=== PATIENT | female | born 1940 | race Two or more races ===

== ENCOUNTER 2017-11-10 06:52 | Day surgery (SDC) | payer OTHER, MEDICAID ==
[~2017-11-10] VITALS: Ht 157.5 cm; Wt 100.0 kg
[~2017-11-10 06:52] MED LIST: AMLO10TA2 PO; ASPI81TA27 PO; HYDR10TA26 PO; METO1TAB9 PO
[2017-11-10] MEDS ORDERED: LIDOCAINE HCL 2 %PF INJ 10ML AMP IJ ONE (07:22)
[2017-11-10] MEDS ORDERED: IODIXANOL 320MG/ML 100ML BTL IV ONE (07:22)
[2017-11-10] MEDS ORDERED: fentaNYL CITRATE 100 MCG/2 ML VL ONE (07:54)
[2017-11-10] MEDS ORDERED: MIDAZOLAM HCL 1MG/1ML-2 ML VIAL ONE (07:54)
[2017-11-10] MEDS ORDERED: VERAPAMIL 2.5MG/ML INJ 2ML VIAL IV ONE (07:54)
[2017-11-10] MEDS ORDERED: ANGIOMAX 250 MG VIAL IV ONE (07:54)
[2017-11-10] MEDS ORDERED: SODIUM CHL 0.9% 0 ML ONE (07:55)
[2017-11-10] MEDS ORDERED: HEPARIN SODIUM (PORCINE) 5000 UNITS/ML 1ML VIAL ONE (08:33)
== END 2017-11-10 10:35 | disposition home or self-care (01) ==
LOC: CATH 06:52
PROVIDERS: ATTEND Internal Medicine
DX: R94.39 Abnormal result of other cardiovascular function study (principal); I10 Essential (primary) hypertension; E78.5 Hyperlipidemia, unspecified; J44.9 Chronic obstructive pulmonary disease, unspecified; Z88.6 Allergy status to analgesic agent
CPT/HCPCS: C1769; C1894; J1644; J2250; J3010; J7030; Q9967; 93458; 99152

== ENCOUNTER 2017-12-25 10:15 | Emergency (ER) | payer OTHER, MEDICAID ==
[~2017-12-25] VITALS: Ht 157.5 cm; Wt 108.9 kg
[2017-12-25 10:34] VITALS: BP 116/71
[2017-12-25] MEDS ORDERED: MEPERIDINE HCL (50 MG/ML) 1 ML VIAL IM ONE (11:00)
[2017-12-25] MEDS ORDERED: PROMETHAZINE HCL 25 MG/ML 1ML IM ONE (11:00)
[2017-12-31] MEDS ORDERED: AMLO5TAB2 PO (22:41)
[2017-12-31] MEDS ORDERED: TRAM50TA2 PO (22:41)
== END 2017-12-25 12:03 | disposition home or self-care (01) ==
LOC: ER 10:15
DX: M48.061 Spinal stenosis, lumbar region without neurogenic claudication (principal); M54.16 Radiculopathy, lumbar region; I10 Essential (primary) hypertension; Z88.5 Allergy status to narcotic agent
CPT/HCPCS: 72131; 96372; 99284; J2175; J2550

== ENCOUNTER 2019-04-15 11:31 | Inpatient (IN) | payer OTHER, MEDICAID ==
[~2019-04-15] VITALS: Ht 157.5 cm; Wt 110.7 kg
[~2019-04-15 11:31] MED LIST changes: -AMLO10TA2 PO; +AMLO5TAB15 PO; +ASPI-404 PO; -ASPI81TA27 PO; +TRAM50TA2 PO
[2019-04-15] MEDS ORDERED: SODIUM CHLORIDE 0.9% 1,000 ML IV ONE (12:51)
[2019-04-15] MEDS ORDERED: ONDANSETRON HCL 4 MG/2 ML VIAL IV ONE (13:00)
[2019-04-15] MEDS ORDERED: KETOROLAC TROMETH 30 MG/ML 1ML VIAL IV ONE (13:00)
[2019-04-15 13:50] LABS: Basophils # (auto) 0.1 uL; Basophils % (auto) 1.5 % (0.0-2.0); Eosinophils # (auto) 0.9 uL; Eosinophils % (auto) 9.4 % (0.0-7.0); Hemoglobin 14.4 g/dL (12.2-16.2); Lymphocytes # (auto) 2.1 uL; Lymphocytes % (auto) 22.4 % (10.0-50.0); Mean Corpuscular Hemoglobin 27.7 pg (28.0-32.0); Mean Corpuscular Hgb Conc. 33.5 g/dL (32.0-36.0); Mean Corpuscular Volume 82.6 fL (80.0-100.0); Monocytes # (auto) 0.9 uL; Monocytes % (auto) 9.7 % (0.0-12.0); Neutrophils # (auto) 5.3 uL; Nucleated Red Blood Cells % 0.1 %; Platelet Count (auto) 194 10^3/uL (140-450); Red Cell Distribution Width 14.3 % (11.8-14.3); White Blood Cell 9.3 10^3/uL (4.4-10.8)
[2019-04-15 14:04] LABS: INR 0.96 (0.9-1.15); Partial Thromboplastin Time 25.9 sec (23.64-32.05)
[2019-04-15 14:11] LABS: Albumin 3.8 g/dL (3.4-5.0); Calcium 8.8 mg/dL (8.5-10.1); Potassium 4.2 mmol/L (3.5-5.1)
[2019-04-15 14:18] LABS: BUN/Creatinine Ratio 21.3; Bilirubin, Total 0.3 mg/dL (0.2-1.0); Total Protein 7.4 g/dL (6.4-8.2)
[2019-04-15 15:19] LABS: Urine Bacteria NONE SEEN /hpf (None Seen); Urine Blood Negative /uL (Negative); Urine Hyaline Cast FEW /lpf (0 - 2); Urine Mucus FEW (None Seen); Urine Specific Gravity 1.017 (1.001-1.035); Urine WBC 8 /hpf (0 - 5)
[2019-04-15] MEDS ORDERED: metroNIDAZOLE 500MG/100ML 100 ML IV ONE (16:00)
[2019-04-15] MEDS ORDERED: cefTRIAXone 1GM/50ML D5W 50 ML IV ONE (16:00)
[2019-04-15] MEDS ORDERED: NITROGLYCERIN 0.4 MG SL TAB SL PRN (19:30)
[2019-04-15] MEDS ORDERED: ACETAMINOPHEN 500 MG TAB PO PRN (19:30)
[2019-04-15] MEDS ORDERED: ONDANSETRON HCL 4 MG/2 ML VIAL IV PRN (19:30)
[2019-04-15] MEDS ORDERED: MORPHINE SULF INJ 2 MG/ML SYRINGE 1ML IV PRN (19:30)
[2019-04-15] MEDS ORDERED: HYDROcodone-ACET 5/325MG TAB PO PRN (19:30)
[2019-04-15] MEDS ORDERED: LABETALOL HCL 5 MG/ML ML 20ML VIAL IV PRN (19:30)
[2019-04-15] MEDS: SODIUM CHLORIDE 0.9% 1,000 ML IV SCH ×2 (19:36→21:46)
[2019-04-15 20:15] VITALS: BP 149/72
--- NOTE | 2019-04-15 20:15 | NUR ---
MS admit from [facility] admitted to tele/MS after SBAR received. Patient oriented to Rachel Martini, RN primary RN, unit, room, bed, and unit policies regarding patient care and visiting hours. Patient weighed by bedscale and encouraged to call if they need something. All questions and concerns addressed, patient verbalized understanding. Note: Patient AxO x 4. [place] speaking, [place] at bedside. On RA with unlabored and even respirations. No signs and symptoms of distress and SOB. Patient turns in bed independently, ambulates with steady gait. IV to right hand 20 gauge intact and patent. Bed in low locked position, side rails up x 2, call light within reach. Instructed on POC and to call for assistance PRN. Will continue care.
[2019-04-15] MEDS: metroNIDAZOLE 500MG/100ML 100 ML IV SCH (21:47)
[2019-04-15] MEDS: DOCUSATE SOD 100 MG CAP PO SCH (21:48)
[2019-04-15 22:00] VITALS: BP 153/84
[2019-04-15] MEDS ORDERED: DOCUSATE SOD 100 MG CAP PO SCH (22:00)
[2019-04-16] MEDS ORDERED: ACET-1156 PO (04:52)
[2019-04-16] MEDS ORDERED: LOSA-39 PO (04:52)
[2019-04-16] MEDS ORDERED: METO25TA62 PO (04:52)
[2019-04-16] MEDS ORDERED: CHOL20007 PO (04:52)
[2019-04-16] MEDS ORDERED: HYDR-4296 PO (04:52)
[2019-04-16 05:00] VITALS: BP 161/75
[2019-04-16] MEDS: metroNIDAZOLE 500MG/100ML 100 ML IV SCH ×3 (05:36→21:59)
--- NOTE | 2019-04-16 06:00 | NUR ---
RIGO Britt paged RE: High BP and BP Home Meds BP 172/74 HR 62 Recheck BP 161/90 HR 59. Reconcile meds have been completed. Awaiting call back, will continue care
[2019-04-16 06:08] VITALS: BP 158/68
--- NOTE | 2019-04-16 06:10 | NUR ---
Received call back from Balwinder TAPE DUPLICATOR updated RIGO Britt on patient status and BP home meds, received new orders, will carry out and continue care.
[2019-04-16 06:20] LABS: Basophils # (auto) 0.1 uL; Basophils % (auto) 0.8 % (0.0-2.0); Eosinophils # (auto) 0.8 uL; Eosinophils % (auto) 10.7 % (0.0-7.0); Hematocrit 42.4 % (36.0-46.0); Hemoglobin 14.7 g/dL (12.2-16.2); Lymphocytes # (auto) 1.8 uL; Lymphocytes % (auto) 25.3 % (10.0-50.0); Mean Corpuscular Hemoglobin 28.5 pg (28.0-32.0); Mean Corpuscular Hgb Conc. 34.6 g/dL (32.0-36.0); Mean Corpuscular Volume 82.3 fL (80.0-100.0); Monocytes # (auto) 0.7 uL; Monocytes % (auto) 9.6 % (0.0-12.0); Neutrophils # (auto) 3.9 uL; Neutrophils % (auto) 53.6 % (37.0-80.0); Nucleated Red Blood Cells % 0.1 %; Platelet Count (auto) 179 10^3/uL (140-450); Red Blood Cells 5.16 10^6/uL (4.0-5.20); Red Cell Distribution Width 14.5 % (11.8-14.3); White Blood Cell 7.3 10^3/uL (4.4-10.8)
[2019-04-16 06:47] LABS: Potassium 3.8 mmol/L (3.5-5.1)
[2019-04-16 06:57] LABS: BUN/Creatinine Ratio 14.8; Calcium 8.6 mg/dL (8.5-10.1)
--- NOTE | 2019-04-16 07:02 | NUR ---
Closing Note patient resting in bed with even and unlabored respirations, no s/s of distress. Bed low locked position with side rails up x 2 and call light within reach. Endorsed care to day shift RN.
--- NOTE | 2019-04-16 07:30 | NUR ---
Opening Shift Note Assumed care of patient, awake and alert. No S/S of distress/SOB or pain on room air. Instructed on POC and to call for assist PRN, will continue to monitor for changes Q1hr and PRN. Bed in low and locked position, rails up x2, no-slip socks on.
--- NOTE | 2019-04-16 08:00 | NUR ---
FAMILY CALL PASSWORD VERIFIED, UPDATED ON PLAN OF CARE, SPOKE TO SAGAR-PATIENTS DAUGHTER, ALL QUESTIONS ANSWERED.
[2019-04-16 08:03] VITALS: BP 142/62
[2019-04-16] MEDS: cefTRIAXone 1GM/50ML D5W 50 ML IV SCH (09:38)
[2019-04-16] MEDS: amLODIPine BESYLATE 5 MG TAB PO SCH (09:43)
[2019-04-16] MEDS: DOCUSATE SOD 100 MG CAP PO SCH ×2 (09:43→21:58)
[2019-04-16] MEDS: LOSARTAN POTASSIUM 50 MG TAB PO SCH (09:45)
[2019-04-16] MEDS: METOPROLOL SUCCINATE XL 50 MG TAB PO SCH (09:46)
[2019-04-16] MEDS: PANTOPRAZOLE 40 MG TAB PO SCH (09:47)
[2019-04-16] MEDS: hydrALAZINE HCL 25 MG TAB PO SCH ×2 (09:47→21:59)
[2019-04-16 12:18] VITALS: BP 139/73
[2019-04-16] MEDS: SODIUM CHLORIDE 0.9% 1,000 ML IV SCH (12:23)
--- NOTE | 2019-04-16 15:30 | NUR ---
DR OLIVEIRA AT BEDSIDE ADVANCE DIET TO PUREE, PRN LACTULOSE, D/C IV FLUIDS.
[2019-04-16] MEDS ORDERED: LACTULOSE 20Gm/30ML SOLN PO PRN (15:45)
[2019-04-16 16:13] VITALS: BP 146/80
--- NOTE | 2019-04-16 20:05 | NUR ---
Opening Shift Note Assumed care of patient, awake and alert. No S/S of distress/SOB or pain. Instructed on POC and to call for assistance PRN, will continue to monitor for changes Q1hr and PRN.
--- NOTE | 2019-04-16 21:45 | NUR ---
IV removal non patent IV to right hand DC'd with clean sterile technique due, catheter fully intact. Pressure dressing applied to site. Patient tolerated well. NOTE:
--- NOTE | 2019-04-16 21:55 | NUR ---
IV insertion IV access obtained, via clean sterile technique by inserting 22 gauge catheter at left hand after 1 attempt(s). IV secured properly. No trauma to site. Patient tolerated well. NOTE:
[2019-04-16] MEDS: SODIUM CHLOR 0.9% PF (SALINE LOCK) 10ML VIAL/SYR IV SCH (21:59)
[2019-04-16 22:00] VITALS: BP 151/65
[2019-04-17 05:00] VITALS: BP 146/64
[2019-04-17] MEDS: metroNIDAZOLE 500MG/100ML 100 ML IV SCH ×3 (05:18→22:31)
[2019-04-17] MEDS: SODIUM CHLOR 0.9% PF (SALINE LOCK) 10ML VIAL/SYR IV SCH ×3 (05:18→22:30)
[2019-04-17 07:38] LABS: Potassium 4.1 mmol/L (3.5-5.1)
[2019-04-17 07:50] LABS: Basophils # (auto) 0.1 uL; Eosinophils # (auto) 0.8 uL; Eosinophils % (auto) 11.4 % (0.0-7.0); Hematocrit 42.4 % (36.0-46.0); Hemoglobin 14.7 g/dL (12.2-16.2); Lymphocytes # (auto) 1.9 uL; Lymphocytes % (auto) 25.8 % (10.0-50.0); Mean Corpuscular Hemoglobin 28.7 pg (28.0-32.0); Mean Corpuscular Hgb Conc. 34.7 g/dL (32.0-36.0); Mean Corpuscular Volume 82.7 fL (80.0-100.0); Monocytes # (auto) 0.7 uL; Monocytes % (auto) 9.9 % (0.0-12.0); Neutrophils # (auto) 3.9 uL; Neutrophils % (auto) 51.9 % (37.0-80.0); Nucleated Red Blood Cells % 0.1 %; Platelet Count (auto) 178 10^3/uL (140-450); Red Blood Cells 5.12 10^6/uL (4.0-5.20); Red Cell Distribution Width 14.3 % (11.8-14.3); White Blood Cell 7.5 10^3/uL (4.4-10.8)
[2019-04-17 09:00] VITALS: BP 133/65
[2019-04-17] MEDS: PANTOPRAZOLE 40 MG TAB PO SCH (09:37)
[2019-04-17] MEDS: cefTRIAXone 1GM/50ML D5W 50 ML IV SCH (09:37)
[2019-04-17] MEDS: amLODIPine BESYLATE 5 MG TAB PO SCH (09:38)
[2019-04-17] MEDS: METOPROLOL SUCCINATE XL 50 MG TAB PO SCH (09:39)
[2019-04-17] MEDS: LOSARTAN POTASSIUM 50 MG TAB PO SCH (09:39)
[2019-04-17] MEDS: hydrALAZINE HCL 25 MG TAB PO SCH ×2 (09:40→22:31)
[2019-04-17] MEDS: DOCUSATE SOD 100 MG CAP PO SCH ×2 (09:40→22:31)
[2019-04-17 13:00] VITALS: BP 146/73
--- NOTE | 2019-04-17 13:24 | NUR ---
pt seen by Dr. Green per Dr. Green he will keep the pt one more day for her iv antibiotic and will be discharge tomorrow.
[2019-04-17 17:00] VITALS: BP 140/68
--- NOTE | 2019-04-17 19:15 | NUR ---
Opening Shift Note Assumed care of patient, awake and alert. No S/S of distress/SOB or pain. Safety measures in place bed in lowest position, side rails x2 up, call light within reach. Instructed on POC and to call for assist PRN, will continue to monitor for changes Q1hr and PRN.
[2019-04-17 22:00] VITALS: BP 127/66
[2019-04-18 05:00] VITALS: BP 140/57
[2019-04-18] MEDS: metroNIDAZOLE 500MG/100ML 100 ML IV SCH ×2 (06:11→13:21)
[2019-04-18] MEDS: SODIUM CHLOR 0.9% PF (SALINE LOCK) 10ML VIAL/SYR IV SCH ×2 (06:12→13:39)
[2019-04-18 07:07] LABS: Basophils # (auto) 0 uL; Basophils % (auto) 0.5 % (0.0-2.0); Eosinophils # (auto) 0.9 uL; Eosinophils % (auto) 13.4 % (0.0-7.0); Hematocrit 42.3 % (36.0-46.0); Hemoglobin 14.6 g/dL (12.2-16.2); Lymphocytes # (auto) 1.8 uL; Lymphocytes % (auto) 26.8 % (10.0-50.0); Mean Corpuscular Hemoglobin 28.6 pg (28.0-32.0); Mean Corpuscular Hgb Conc. 34.5 g/dL (32.0-36.0); Mean Corpuscular Volume 82.8 fL (80.0-100.0); Monocytes # (auto) 0.7 uL; Monocytes % (auto) 9.8 % (0.0-12.0); Neutrophils # (auto) 3.3 uL; Neutrophils % (auto) 49.5 % (37.0-80.0); Platelet Count (auto) 183 10^3/uL (140-450); Red Blood Cells 5.11 10^6/uL (4.0-5.20); Red Cell Distribution Width 14.4 % (11.8-14.3); White Blood Cell 6.7 10^3/uL (4.4-10.8)
[2019-04-18 07:23] LABS: BUN/Creatinine Ratio 13.5; Calcium 8.9 mg/dL (8.5-10.1); Potassium 3.8 mmol/L (3.5-5.1)
--- NOTE | 2019-04-18 07:57 | NUR ---
Opening Note Assumed pt care from [facility] nurse. Pt is a/ox4 with no s/s of distress o0r SOB. Pt is currently at the edge of her bed with no complaints. Discussed POC with pt; pt verbalized understanding. Safety measures maintained with call light within reach, bed in lowest position and side rails up. Will continue to monitor for changes q1hr and prn.
[2019-04-18 09:00] VITALS: BP 143/67
[2019-04-18] MEDS: DOCUSATE SOD 100 MG CAP PO SCH (09:03)
[2019-04-18] MEDS: cefTRIAXone 1GM/50ML D5W 50 ML IV SCH (09:03)
[2019-04-18] MEDS: PANTOPRAZOLE 40 MG TAB PO SCH (09:03)
[2019-04-18] MEDS: hydrALAZINE HCL 25 MG TAB PO SCH (09:04)
[2019-04-18] MEDS: METOPROLOL SUCCINATE XL 50 MG TAB PO SCH (09:04)
[2019-04-18] MEDS: LOSARTAN POTASSIUM 50 MG TAB PO SCH (09:04)
[2019-04-18] MEDS: amLODIPine BESYLATE 5 MG TAB PO SCH (09:05)
--- NOTE | 2019-04-18 10:43 | NUR ---
Iv Infiltrated/ New IV insertion IV to L hand infiltrated. New 22 G IV inserted to R FA with one attempt made using clean/sterile technique. L hand IV removed; site is asymptomatic, catheter removed fully intact. Gauze and coban applied
[2019-04-18 13:00] VITALS: BP 153/57
[2019-04-18 16:13] VITALS: BP 153/57
--- NOTE | 2019-04-18 16:50 | NUR ---
IV Removal IV removal for d/c. Catheter removed fully intact. Site was asymptomatic upon d/c. Pt tolerated well. Gauze and coban applied after direct pressure for 3 minutes.
--- NOTE | 2019-04-18 17:00 | NUR ---
Pt D/C'ed off Unit Pt d/c from unit via wheelchair accompanied by daughter. Pt has all belongings as well as educational and prescription material. IV removed and ID bands removed. Pt is a/ox4 with no SOB
== END 2019-04-18 17:00 | disposition home or self-care (01) | DRG 391 ==
LOC: ER 11:31 → OVERFLOW 11:32 → EAST 20:02
PROVIDERS: ADMIT Nurse Practitioner Acute Care; ATTEND Internal Medicine
DX: K57.32 Diverticulitis of large intestine without perforation or abscess without bleeding (principal); N17.0 Acute kidney failure with tubular necrosis; N39.0 Urinary tract infection, site not specified; Z68.41 Body mass index [BMI] 40.0-44.9, adult; N18.9 Chronic kidney disease, unspecified; I12.9 Hypertensive chronic kidney disease with stage 1 through stage 4 chronic kidney disease, or unspecified chronic kidney disease; K44.9 Diaphragmatic hernia without obstruction or gangrene; K59.00 Constipation, unspecified; E66.01 Morbid (severe) obesity due to excess calories; M19.90 Unspecified osteoarthritis, unspecified site; Z88.5 Allergy status to narcotic agent; Z79.899 Other long term (current) drug therapy; Z82.49 Family history of ischemic heart disease and other diseases of the circulatory system
CPT/HCPCS: 36415; 74176; 80048; 80053; 81001; 82150; 83690; 84443; 85025; 85610; 85730; 87086; 93005; 96365; 96367; 96375; G0378; J0696; J1885; J2405; J3490

== ENCOUNTER → 2020-04-05 | Day surgery (SDC) | payer OTHER, MEDICAID ==
[2020-03-29 12:04] LABS: Calcium 9.1 mg/dL (8.5-10.1); Potassium 4.2 mmol/L (3.5-5.1)
[2020-03-29 12:07] LABS: Basophils # (auto) 0.1 10 ^3/uL (0-0.2); Monocytes # (auto) 0.8 10 ^3/uL (0-1.3)
[2020-03-29 12:10] LABS: Albumin 4.1 g/dL (3.4-5.0); Basophils % (auto) 0.8 % (0.0-2.0); Bilirubin, Total 0.4 mg/dL (0.2-1.0); Eosinophils # (auto) 1.1 10 ^3/uL (0-0.8); Eosinophils % (auto) 12.1 % (0.0-7.0); Hematocrit 44.7 % (36.0-46.0); Hemoglobin 14.6 g/dL (12.2-16.2); INR 0.98 (0.9-1.15); Lymphocytes # (auto) 2.3 10 ^3/uL (0.4-5.4); Lymphocytes % (auto) 24.9 % (10.0-50.0); Mean Corpuscular Hemoglobin 27.5 pg (28.0-32.0); Mean Corpuscular Hgb Conc. 32.8 g/dL (32.0-36.0); Mean Corpuscular Volume 83.8 fL (80.0-100.0); Monocytes % (auto) 8.9 % (0.0-12.0); Neutrophils # (auto) 4.9 10 ^3/uL (1.6-8.6); Neutrophils % (auto) 53.3 % (37.0-80.0); Partial Thromboplastin Time 26.8 sec (23.0-31.2); Platelet Count (auto) 224 10^3/uL (140-450); Red Blood Cells 5.34 10^6/uL (4.0-5.20); Red Cell Distribution Width 14.9 % (11.8-14.3); White Blood Cell 9.3 10^3/uL (4.4-10.8)
[2020-03-29 12:46] LABS: Urine Bacteria NONE SEEN /hpf (None Seen); Urine Blood Negative /uL (Negative); Urine Mucus FEW (None Seen); Urine Specific Gravity 1.017 (1.001-1.035); Urine WBC 13 /hpf (0 - 5)
[~2020-04-05] VITALS: Ht 157.5 cm; Wt 106.1 kg
[~2020-04-05] MED LIST changes: +ACET-1156 PO; -ASPI-404 PO; +CHOL20007 PO; +HYDR-4296 PO; -HYDR10TA26 PO; +LOSA-39 PO; -METO1TAB9 PO; +METO25TA93 PO; -TRAM50TA2 PO
[2020-04-05 09:01] VITALS: BP 142/38
== END | disposition home or self-care (01) ==
LOC: SUR 07:45
PROVIDERS: ATTEND Urology
DX: R32 Unspecified urinary incontinence (principal); J44.9 Chronic obstructive pulmonary disease, unspecified; E66.9 Obesity, unspecified; I71.4 Abdominal aortic aneurysm, without rupture; Z88.5 Allergy status to narcotic agent; Z68.41 Body mass index [BMI] 40.0-44.9, adult; Z87.891 Personal history of nicotine dependence; Z53.8 Procedure and treatment not carried out for other reasons; Z20.828 Contact with and (suspected) exposure to other viral communicable diseases
CPT/HCPCS: 36415; 80053; 81001; 85025; 85610; 85730; U0003

== ENCOUNTER 2020-07-11 01:27 | Emergency (ER) | payer OTHER, MEDICAID ==
[~2020-07-11] VITALS: Ht 165.1 cm; Wt 104.8 kg
[2020-07-11] MEDS ORDERED: ACETAMINOPHEN 500 MG TAB PO ONE (01:45)
[2020-07-11 01:56] LABS: Basophils # (auto) 0 10 ^3/uL (0-0.2); Basophils % (auto) 0.6 % (0.0-2.0); Eosinophils # (auto) 0 10 ^3/uL (0-0.8); Eosinophils % (auto) 0.7 % (0.0-7.0); Hematocrit 42.3 % (36.0-46.0); Hemoglobin 14.2 g/dL (12.2-16.2); Lymphocytes # (auto) 1.2 10 ^3/uL (0.4-5.4); Lymphocytes % (auto) 17.7 % (10.0-50.0); Mean Corpuscular Hemoglobin 27.1 pg (28.0-32.0); Mean Corpuscular Hgb Conc. 33.5 g/dL (32.0-36.0); Mean Corpuscular Volume 80.8 fL (80.0-100.0); Monocytes # (auto) 0.7 10 ^3/uL (0-1.3); Monocytes % (auto) 10.3 % (0.0-12.0); Neutrophils # (auto) 4.9 10 ^3/uL (1.6-8.6); Neutrophils % (auto) 70.7 % (37.0-80.0); Nucleated Red Blood Cells % 0.1 %; Platelet Count (auto) 134 10^3/uL (140-450); Red Blood Cells 5.23 10^6/uL (4.0-5.20); Red Cell Distribution Width 14.7 % (11.8-14.3)
[2020-07-11 02:17] LABS: Albumin 3.4 g/dL (3.4-5.0); BUN/Creatinine Ratio 10.3; Calcium 7.9 mg/dL (8.5-10.1); Potassium 3.2 mmol/L (3.5-5.1)
[2020-07-11 02:22] LABS: Bilirubin, Total 0.5 mg/dL (0.2-1.0); Total Protein 7.1 g/dL (6.4-8.2)
[2020-07-11 02:59] LABS: INR 1.04 (0.9-1.15); Partial Thromboplastin Time 28.7 sec (23.0-31.2)
[2020-07-11 04:51] VITALS: BP 130/76
== END 2020-07-11 05:27 | disposition home or self-care (01) ==
LOC: ER 01:30
DX: U07.1 COVID-19 (principal); I11.0 Hypertensive heart disease with heart failure; I50.9 Heart failure, unspecified
CPT/HCPCS: 36415; 71045; 80053; 83880; 84484; 85025; 85610; 85730; 87426; 93005

== ENCOUNTER 2020-11-12 13:04 | Inpatient (IN) | payer OTHER, MEDICAID ==
[~2020-11-12] VITALS: Ht 157.5 cm; Wt 108.1 kg
[~2020-11-12 13:04] MED LIST changes: +AMLO-489 PO; -AMLO5TAB15 PO
[2020-11-12] MEDS ORDERED: SODIUM CHLORIDE 0.9% 500 ML IVB ONE (13:15)
[2020-11-12] MEDS ORDERED: ONDANSETRON HCL 4 MG/2 ML VIAL IV ONE (13:15)
[2020-11-12] MEDS ORDERED: MORPHINE SULFATE 4 MG/ML SYR/VIAL IV ONE (13:15)
[2020-11-12] MEDS ORDERED: HYDROmorphone HCL 2 MG/ML VL IV ONE (14:15)
[2020-11-12] MEDS ORDERED: NITROGLYCERIN 0.4 MG SL TAB SL PRN (15:15)
[2020-11-12] MEDS ORDERED: MEPERIDINE HCL (25 MG/ML) 1ML VIAL IV PRN (15:15)
[2020-11-12] MEDS ORDERED: ONDANSETRON HCL 4 MG/2 ML VIAL IV PRN (15:15)
[2020-11-12 15:19] LABS: Basophils # (auto) 0.1 10 ^3/uL (0-0.2); Basophils % (auto) 0.5 % (0.0-2.0); Eosinophils # (auto) 1.5 10 ^3/uL (0-0.8); Eosinophils % (auto) 14.2 % (0.0-7.0); Hematocrit 44.6 % (36.0-46.0); Hemoglobin 14.9 g/dL (12.2-16.2); Lymphocytes # (auto) 2.9 10 ^3/uL (0.4-5.4); Lymphocytes % (auto) 27.3 % (10.0-50.0); Mean Corpuscular Hemoglobin 27.6 pg (28.0-32.0); Mean Corpuscular Hgb Conc. 33.5 g/dL (32.0-36.0); Mean Corpuscular Volume 82.5 fL (80.0-100.0); Monocytes % (auto) 9.2 % (0.0-12.0); Neutrophils # (auto) 5.2 10 ^3/uL (1.6-8.6); Neutrophils % (auto) 48.8 % (37.0-80.0); Nucleated Red Blood Cells % 0.1 %; Platelet Count (auto) 194 10^3/uL (140-450); Red Blood Cells 5.41 10^6/uL (4.0-5.20); Red Cell Distribution Width 15.3 % (11.8-14.3); White Blood Cell 10.6 10^3/uL (4.4-10.8)
[2020-11-12 15:20] LABS: Albumin 3.7 g/dL (3.4-5.0); Calcium 8.9 mg/dL (8.5-10.1); Potassium 4.1 mmol/L (3.5-5.1)
[2020-11-12 15:23] LABS: Bilirubin, Total 0.4 mg/dL (0.2-1.0); Total Protein 7.4 g/dL (6.4-8.2)
[2020-11-12] MEDS: SODIUM CHLORIDE 0.9% 1,000 ML IV SCH (15:52)
[2020-11-12 18:57] VITALS: BP 144/50
[2020-11-12] MEDS: metroNIDAZOLE 500MG/100ML 100 ML IV SCH (21:56)
[2020-11-12] MEDS: hydrALAZINE HCL 25 MG TAB PO SCH (21:58)
[2020-11-12 22:00] VITALS: BP 137/62
[2020-11-13] MEDS: SODIUM CHLORIDE 0.9% 1,000 ML IV SCH ×3 (01:43→15:15)
[2020-11-13 05:00] VITALS: BP 111/77
[2020-11-13] MEDS: metroNIDAZOLE 500MG/100ML 100 ML IV SCH ×3 (05:31→22:15)
[2020-11-13 09:00] VITALS: BP 110/51
[2020-11-13 10:15] VITALS: BP 131/46
[2020-11-13] MEDS: cefTRIAXone 1GM/50ML D5W 50 ML IV SCH (10:25)
[2020-11-13] MEDS: PANTOPRAZOLE 40 MG/10 ML VIAL INJ IV SCH (10:26)
[2020-11-13] MEDS: hydrALAZINE HCL 25 MG TAB PO SCH ×2 (10:26→22:00)
[2020-11-13] MEDS: LOSARTAN POTASSIUM 50 MG TAB PO SCH (10:26)
[2020-11-13] MEDS: amLODIPine BESYLATE 5 MG TAB PO SCH (10:27)
[2020-11-13] MEDS: METOPROLOL SUCCINATE XL 50 MG TAB PO SCH (10:27)
[2020-11-13] MEDS ORDERED: OPTISON 3ml Vial for INJ IV ONE (11:01)
[2020-11-13 13:00] VITALS: BP 123/50
[2020-11-13] MEDS ORDERED: LACTULOSE 20Gm/30ML SOLN PO PRN (15:15)
[2020-11-13 17:00] VITALS: BP 138/69
[2020-11-13 22:01] VITALS: BP 119/43
[2020-11-13] MEDS: DOCUSATE SOD 100 MG CAP PO SCH (22:16)
[2020-11-14 05:00] VITALS: BP 120/65
[2020-11-14] MEDS: SODIUM CHLORIDE 0.9% 1,000 ML IV SCH (05:33)
[2020-11-14] MEDS: metroNIDAZOLE 500MG/100ML 100 ML IV SCH ×2 (06:52→14:00)
[2020-11-14 09:00] VITALS: BP 133/65
[2020-11-14] MEDS: cefTRIAXone 1GM/50ML D5W 50 ML IV SCH (09:44)
[2020-11-14] MEDS: PANTOPRAZOLE 40 MG/10 ML VIAL INJ IV SCH (09:45)
[2020-11-14] MEDS: amLODIPine BESYLATE 5 MG TAB PO SCH (09:45)
[2020-11-14] MEDS: hydrALAZINE HCL 25 MG TAB PO SCH (09:46)
[2020-11-14] MEDS: LOSARTAN POTASSIUM 50 MG TAB PO SCH (09:46)
[2020-11-14] MEDS: METOPROLOL SUCCINATE XL 50 MG TAB PO SCH (09:47)
[2020-11-14] MEDS: DOCUSATE SOD 100 MG CAP PO SCH (09:47)
[2020-11-14] MEDS ORDERED: LEVO500T31 PO (11:23)
[2020-11-14] MEDS ORDERED: DOCU-94 PO (11:23)
[2020-11-14] MEDS ORDERED: METR500T PO (11:23)
[2020-11-14 13:00] VITALS: BP 131/60
[2020-11-14 13:53] VITALS: BP 144/86
== END 2020-11-14 15:55 | disposition home health service (06) | DRG 392 ==
LOC: EDUNIT# 13:04 → ER 13:04 → EDBD 13:04 → OVERFLOW 15:15 → CENTRAL 18:31
PROVIDERS: ADMIT Nurse Practitioner Acute Care; ATTEND Internal Medicine
DX: K57.32 Diverticulitis of large intestine without perforation or abscess without bleeding (principal); Z68.41 Body mass index [BMI] 40.0-44.9, adult; E66.01 Morbid (severe) obesity due to excess calories; M19.90 Unspecified osteoarthritis, unspecified site; I11.0 Hypertensive heart disease with heart failure; K59.00 Constipation, unspecified; I50.9 Heart failure, unspecified; Z86.16 Personal history of COVID-19; Z20.822 Contact with and (suspected) exposure to COVID-19; Z88.5 Allergy status to narcotic agent; Z82.49 Family history of ischemic heart disease and other diseases of the circulatory system; Z79.899 Other long term (current) drug therapy
CPT/HCPCS: 36415; 74176; 80053; 83690; 85025; 87426; 93005; 96361; 96374; 96375; 97163; C9113; G0378; J0696; J2405; J3490; Q9956

== ENCOUNTER 2021-10-01 14:10 | Inpatient (IN) | payer OTHER, MEDICAID ==
[~2021-10-01] VITALS: Ht 157.5 cm; Wt 102.6 kg
[~2021-10-01 14:10] MED LIST changes: +DOCU-94 PO; +LEVO500T31 PO; +METR500T PO
[2021-10-01] MEDS ORDERED: LORazepam 2MG/ML-1ML VIAL IV ONE ×2 (14:30→14:45)
[2021-10-01] MEDS ORDERED: KETOROLAC TROMETH 30 MG/ML 1ML VIAL IV ONE (14:45)
[2021-10-01] MEDS ORDERED: ONDANSETRON HCL 4 MG/2 ML VIAL IV ONE (14:45)
[2021-10-01] MEDS ORDERED: MORPHINE SULFATE INJECTION 2 MG/ML SYRG IV ONE (14:45)
[2021-10-01] MEDS ORDERED: KETOROLAC TROMETH 30 MG/ML 1ML VIAL ONE (14:48)
[2021-10-01 15:45] LABS: Basophils # (auto) 0.1 10 ^3/uL (0-0.2); Basophils % (auto) 0.7 % (0.0-2.0); Eosinophils # (auto) 0.9 10 ^3/uL (0-0.8); Eosinophils % (auto) 10.8 % (0.0-7.0); Hematocrit 42.7 % (36.0-46.0); Hemoglobin 14.2 g/dL (12.2-16.2); Lymphocytes # (auto) 2.1 10 ^3/uL (0.4-5.4); Lymphocytes % (auto) 24.8 % (10.0-50.0); Mean Corpuscular Hemoglobin 27.8 pg (28.0-32.0); Mean Corpuscular Hgb Conc. 33.3 g/dL (32.0-36.0); Mean Corpuscular Volume 83.6 fL (80.0-100.0); Monocytes # (auto) 0.6 10 ^3/uL (0-1.3); Monocytes % (auto) 7.1 % (0.0-12.0); Neutrophils # (auto) 4.9 10 ^3/uL (1.6-8.6); Neutrophils % (auto) 56.6 % (37.0-80.0); Nucleated Red Blood Cells % 0.1 %; Red Cell Distribution Width 14.6 % (11.8-14.3); White Blood Cell 8.6 10^3/uL (4.4-10.8)
[2021-10-01 16:05] LABS: Urine Bacteria NONE SEEN /hpf (None Seen); Urine Blood Negative /uL (Negative); Urine Specific Gravity 1.013 (1.001-1.035); Urine WBC 10 /hpf (0 - 5)
[2021-10-01 16:06] LABS: Albumin 3.4 g/dL (3.4-5.0); BUN/Creatinine Ratio 13.6; Calcium 8.6 mg/dL (8.5-10.1); Potassium 3.7 mmol/L (3.5-5.1)
[2021-10-01 16:10] LABS: Bilirubin, Total 0.4 mg/dL (0.2-1.0); Total Protein 6.5 g/dL (6.4-8.2)
[2021-10-01] MEDS ORDERED: NITR-87 PO (17:02)
[2021-10-01] MEDS ORDERED: ONDANSETRON HCL 4 MG/2 ML VIAL IV PRN (18:30)
[2021-10-01] MEDS ORDERED: NITROGLYCERIN 0.4 MG SL TAB SL PRN (18:30)
[2021-10-01] MEDS ORDERED: cefTRIAXone 1GM/50ML D5W 50 ML IV ONE (18:30)
[2021-10-01] MEDS ORDERED: hydrALAZINE HCL 20 MG/ML VL IV ONE (18:30)
[2021-10-01] MEDS: PANTOPRAZOLE 40 MG/10 ML VIAL INJ IV SCH (18:38)
[2021-10-01 22:00] VITALS: BP 122/56
[2021-10-01] MEDS: hydrALAZINE HCL 25 MG TAB PO SCH (22:10)
[2021-10-01] MEDS: ATORVASTATIN 20 MG TAB PO SCH (22:10)
[2021-10-01] MEDS: ACETAMINOPHEN 325 MG TAB PO PRN (22:14)
[2021-10-01 22:47] VITALS: BP 122/56
[2021-10-01] MEDS ORDERED: CHOL20007 PO (23:22)
[2021-10-01] MEDS ORDERED: CYA100I IM (23:22)
[2021-10-02] MEDS: ACETAMINOPHEN 325 MG TAB PO PRN (03:53)
[2021-10-02 05:00] VITALS: BP 140/55
[2021-10-02 05:57] LABS: Basophils # (auto) 0.1 10 ^3/uL (0-0.2); Basophils % (auto) 0.9 % (0.0-2.0); Eosinophils # (auto) 1.1 10 ^3/uL (0-0.8); Eosinophils % (auto) 12.7 % (0.0-7.0); Hematocrit 40.4 % (36.0-46.0); Hemoglobin 13.6 g/dL (12.2-16.2); Lymphocytes # (auto) 1.8 10 ^3/uL (0.4-5.4); Lymphocytes % (auto) 20.9 % (10.0-50.0); Mean Corpuscular Hemoglobin 28.1 pg (28.0-32.0); Mean Corpuscular Hgb Conc. 33.7 g/dL (32.0-36.0); Mean Corpuscular Volume 83.5 fL (80.0-100.0); Monocytes # (auto) 0.6 10 ^3/uL (0-1.3); Monocytes % (auto) 7.4 % (0.0-12.0); Neutrophils % (auto) 58.1 % (37.0-80.0); Nucleated Red Blood Cells % 0.1 %; Red Blood Cells 4.84 10^6/uL (4.0-5.20); Red Cell Distribution Width 14.7 % (11.8-14.3); White Blood Cell 8.5 10^3/uL (4.4-10.8)
[2021-10-02 06:03] LABS: BUN/Creatinine Ratio 20.8; Calcium 8.8 mg/dL (8.5-10.1); Potassium 4.1 mmol/L (3.5-5.1)
[2021-10-02 08:00] VITALS: BP 140/57
[2021-10-02] MEDS: cefTRIAXone 1GM/50ML D5W 50 ML IV SCH (09:00)
[2021-10-02] MEDS: ASPirin 81 mg TAB PO SCH (10:00)
[2021-10-02] MEDS: hydrALAZINE HCL 25 MG TAB PO SCH ×2 (10:00→22:27)
[2021-10-02] MEDS: LOSARTAN POTASSIUM 50 MG TAB PO SCH (10:00)
[2021-10-02] MEDS ORDERED: amLODIPine BESYLATE 5 MG TAB PO SCH (10:00)
[2021-10-02] MEDS: PANTOPRAZOLE 40 MG/10 ML VIAL INJ IV SCH (10:00)
[2021-10-02] MEDS: ENOXAPARIN SOD 40 MG/0.4 ML SYRINGE SC SCH (10:00)
[2021-10-02 12:00] VITALS: BP 142/62
[2021-10-02 16:00] VITALS: BP 151/62
[2021-10-02 22:00] VITALS: BP 134/76
[2021-10-02] MEDS: ATORVASTATIN 20 MG TAB PO SCH (22:27)
[2021-10-03 05:00] VITALS: BP 141/83
[2021-10-03] MEDS ORDERED: ADENOSINE 85 MG in GIVE UN-DILUTED 0 ML IV STA (08:06)
[2021-10-03 09:00] VITALS: BP 152/63
[2021-10-03] MEDS: cefTRIAXone 1GM/50ML D5W 50 ML IV SCH (09:16)
[2021-10-03] MEDS: LOSARTAN POTASSIUM 50 MG TAB PO SCH (10:00)
[2021-10-03] MEDS: PANTOPRAZOLE 40 MG/10 ML VIAL INJ IV SCH (10:30)
[2021-10-03] MEDS: ENOXAPARIN SOD 40 MG/0.4 ML SYRINGE SC SCH (10:31)
[2021-10-03] MEDS ORDERED: LOSARTAN POTASSIUM 25 MG TAB PO ONE (13:15)
[2021-10-03 13:23] VITALS: BP 136/61
[2021-10-03] MEDS: ASPirin 81 mg TAB PO SCH (13:25)
[2021-10-03] MEDS: hydrALAZINE HCL 25 MG TAB PO SCH ×2 (13:26→22:19)
[2021-10-03 17:00] VITALS: BP 138/66
[2021-10-03 22:00] VITALS: BP 165/65
[2021-10-03] MEDS: amLODIPine BESYLATE 5 MG TAB PO SCH (22:19)
[2021-10-03] MEDS: ATORVASTATIN 20 MG TAB PO SCH (22:21)
[2021-10-04 05:00] VITALS: BP 175/69
[2021-10-04 06:52] VITALS: BP 156/65
[2021-10-04] MEDS: ASPirin 81 mg TAB PO SCH (08:54)
[2021-10-04] MEDS: PANTOPRAZOLE 40 MG/10 ML VIAL INJ IV SCH (08:54)
[2021-10-04] MEDS: hydrALAZINE HCL 25 MG TAB PO SCH ×2 (08:55→22:21)
[2021-10-04] MEDS: ENOXAPARIN SOD 40 MG/0.4 ML SYRINGE SC SCH (08:55)
[2021-10-04] MEDS: LOSARTAN POTASSIUM 50 MG TAB PO SCH (08:55)
[2021-10-04] MEDS: cefTRIAXone 1GM/50ML D5W 50 ML IV SCH (08:56)
[2021-10-04 09:00] VITALS: BP 157/48
[2021-10-04] MEDS ORDERED: LOSA-39 PO (09:14)
[2021-10-04] MEDS ORDERED: LOSARTAN POTASSIUM 50 MG TAB PO ONE (09:30)
[2021-10-04] MEDS ORDERED: SODIUM CHLORIDE 0.9% 1,000 ML IV ONE (10:15)
[2021-10-04 12:33] LABS: BUN/Creatinine Ratio 17.9
[2021-10-04 13:00] VITALS: BP 149/52
[2021-10-04] MEDS ORDERED: IOHEXOL 350 MG/ML 100ML IJ ONE (15:18)
[2021-10-04 17:00] VITALS: BP 153/47
[2021-10-04 22:00] VITALS: BP 133/58
[2021-10-04] MEDS: amLODIPine BESYLATE 5 MG TAB PO SCH (22:21)
[2021-10-04] MEDS: ATORVASTATIN 20 MG TAB PO SCH (22:22)
[2021-10-05 05:00] VITALS: BP 117/64
[2021-10-05 05:17] VITALS: BP 130/60
[2021-10-05 09:00] VITALS: BP 141/50
[2021-10-05] MEDS: cefTRIAXone 1GM/50ML D5W 50 ML IV SCH (09:37)
[2021-10-05] MEDS: PANTOPRAZOLE 40 MG/10 ML VIAL INJ IV SCH (09:37)
[2021-10-05] MEDS: ASPirin 81 mg TAB PO SCH (09:37)
[2021-10-05] MEDS: ENOXAPARIN SOD 40 MG/0.4 ML SYRINGE SC SCH (09:39)
[2021-10-05] MEDS ORDERED: LOSARTAN POTASSIUM 50 MG TAB PO SCH (10:00)
[2021-10-05] MEDS: hydrALAZINE HCL 25 MG TAB PO SCH (10:47)
[2021-10-05 11:19] VITALS: BP 152/53
[2021-10-05 13:00] VITALS: BP 138/59
== END 2021-10-05 14:01 | disposition home health service (06) | DRG 313 ==
LOC: ER 14:10 → EDBD 14:10 → TELE 18:18 → TELE-CENTR 21:10
PROVIDERS: ADMIT Nurse Practitioner; ATTEND Internal Medicine
DX: R07.89 Other chest pain (principal); N39.0 Urinary tract infection, site not specified; Z68.41 Body mass index [BMI] 40.0-44.9, adult; I25.10 Atherosclerotic heart disease of native coronary artery without angina pectoris; I10 Essential (primary) hypertension; F41.9 Anxiety disorder, unspecified; E66.01 Morbid (severe) obesity due to excess calories; I71.2 Thoracic aortic aneurysm, without rupture; M19.90 Unspecified osteoarthritis, unspecified site; Z20.822 Contact with and (suspected) exposure to COVID-19; R42 Dizziness and giddiness; Z82.49 Family history of ischemic heart disease and other diseases of the circulatory system; Z86.16 Personal history of COVID-19; Z88.5 Allergy status to narcotic agent
CPT/HCPCS: 36415; 70450; 71250; 71275; 74177; 78452; 80048; 80053; 81001; 83880; 84484; 85025; 85379; 87086; 93005; 93017; 93306; 93886; 93970; 96365; 96375; 97163; C9113; G0378; J0153; J0696; J1885; J2405

== ENCOUNTER 2022-10-15 09:47 | Emergency (ER) | payer OTHER, MEDICAID ==
[~2022-10-15] VITALS: Ht 157.5 cm; Wt 93.0 kg
[~2022-10-15 09:47] MED LIST changes: +CYA100I IM; -LEVO500T31 PO; -METO25TA93 PO; -METR500T PO
[2022-10-15 10:56] VITALS: BP 164/58
[2022-10-15] MEDS ORDERED: HYDROcodone-ACET 5/325MG TAB PO ONE (11:30)
[2022-10-15] MEDS ORDERED: TRAM-297 PO (11:33)
[2022-10-15] MEDS ORDERED: ACYC-166 PO (11:33)
[2022-10-15] MEDS ORDERED: TRIA0.02 TOP (11:33)
== END 2022-10-15 11:42 | disposition home or self-care (01) ==
LOC: ER 09:47
DX: S23.41XA Sprain of ribs, initial encounter (principal); B02.9 Zoster without complications; M54.50 Low back pain, unspecified; I10 Essential (primary) hypertension; Z88.6 Allergy status to analgesic agent; W18.39XA Other fall on same level, initial encounter; Y93.89 Activity, other specified; Y92.89 Other specified places as the place of occurrence of the external cause; Y99.8 Other external cause status

== ENCOUNTER → 2023-11-12 | Outpatient (CLI) | payer OTHER, MEDICAID ==
[~2023-11-12] MED LIST changes: -ACET-1156 PO; +ACET-1881 PO; +ACET500T58 PO; -AMLO-489 PO; +AMLO1TAB22 PO; +ASCO500T11 PO; +CHOL1CAP47 PO; +DEXT1SYP9 GT; -HYDR-4296 PO; +HYDR25TA88 PO; -LOSA-39 PO; +LOSA-535 PO; +METH4PAK PO; +TRAM-297 PO; +TRIA0.02 TOP
[2023-11-12 10:08] LABS: Basophils # (auto) 0.1 10 ^3/uL (0-0.2); Basophils % (auto) 0.7 % (0.0-2.0); Eosinophils # (auto) 1.1 10 ^3/uL (0-0.8); Eosinophils % (auto) 13.7 % (0.0-7.0); Lymphocytes # (auto) 1.8 10 ^3/uL (0.4-5.4); Lymphocytes % (auto) 21.3 % (10.0-50.0); Mean Corpuscular Hemoglobin 27.9 pg (28.0-32.0); Mean Corpuscular Hgb Conc. 33.2 g/dL (32.0-36.0); Monocytes # (auto) 0.8 10 ^3/uL (0-1.3); Monocytes % (auto) 9.2 % (0.0-12.0); Neutrophils # (auto) 4.6 10 ^3/uL (1.6-8.6); Neutrophils % (auto) 55.1 % (37.0-80.0); Red Blood Cells 5.35 10^6/uL (4.0-5.20); Red Cell Distribution Width 14.6 % (11.8-14.3); White Blood Cell 8.3 10^3/uL (4.4-10.8)
[2023-11-12 10:54] LABS: Alanine Aminotransferase 15 U/L (7-40); Albumin 4.4 g/dL (3.2-4.8); Alkaline Phosphatase 90 U/L (46-116); Anion Gap 7 (5-15); Aspartate Aminotransferase 17 U/L (13-40); BUN/Creatinine Ratio 13.8 (10.0-20.0); Blood Urea Nitrogen 9 mg/dL (9-23); Calcium 9.2 mg/dL (8.5-10.1); Carbon Dioxide 26 mmol/L (20-30); Chloride 107 mmol/L (98-107); Cholesterol 170 mg/dL (< 200); Glucose 92 mg/dL (74-106); LDL Cholesterol 105 mg/dL (< 100); Potassium 3.9 mmol/L (3.5-5.1); Sodium 140 mmol/L (136-145); Triglycerides 61 mg/dL (< 150)
[2023-11-12 10:55] LABS: HDL Cholesterol 53 mg/dL (40-59)
[2023-11-12 10:56] LABS: Bilirubin, Total 0.5 mg/dL (0.2-1.0); Total Protein 6.8 g/dL (5.7-8.2)
[2023-11-12 11:15] LABS: Urine Bacteria MANY /hpf (None Seen); Urine Blood Negative /uL (Negative); Urine Clarity Clear (Clear); Urine Color Light-Yellow (Yellow); Urine Mucus FEW (None Seen); Urine Protein, UAD Negative (Negative); Urine Specific Gravity 1.013 (1.001-1.035); Urine Urobilinogen Normal (Negative); Urine WBC 11 /hpf (0 - 5); Urine pH 5.5 (5.0-9.0)
[2023-11-19 12:06] LABS: Vitamin D 25-Hydroxy 41 ng/mL (.); Vitamin D-2 25-Hydroxy <1.0 ng/mL (.); Vitamin D-3 25-Hydroxy 40 ng/mL (.)
== END | disposition home or self-care (01) ==
LOC: LAB 09:52
PROVIDERS: ATTEND Internal Medicine
DX: Z00.01 Encounter for general adult medical examination with abnormal findings (principal); I10 Essential (primary) hypertension; R32 Unspecified urinary incontinence; E66.01 Morbid (severe) obesity due to excess calories; I25.10 Atherosclerotic heart disease of native coronary artery without angina pectoris; I16.0 Hypertensive urgency; I71.20 Thoracic aortic aneurysm, without rupture, unspecified; Z79.899 Other long term (current) drug therapy
CPT/HCPCS: 36415; 80053; 80061; 81001; 82306; 83036; 84439; 84443; 85025

== ENCOUNTER 2023-11-24 15:28 | Emergency (ER) | payer OTHER, MEDICAID ==
[~2023-11-24] VITALS: Ht 162.6 cm; Wt 97.7 kg
[2023-11-24 19:17] LABS: Basophils # (auto) 0.1 10 ^3/uL (0-0.2); Basophils % (auto) 0.6 % (0.0-2.0); Eosinophils # (auto) 1.3 10 ^3/uL (0-0.8); Eosinophils % (auto) 13.1 % (0.0-7.0); Hematocrit 44.1 % (36.0-46.0); Hemoglobin 14.7 g/dL (12.2-16.2); Lymphocytes # (auto) 2.9 10 ^3/uL (0.4-5.4); Lymphocytes % (auto) 29.7 % (10.0-50.0); Mean Corpuscular Hemoglobin 27.9 pg (28.0-32.0); Mean Corpuscular Hgb Conc. 33.4 g/dL (32.0-36.0); Mean Corpuscular Volume 83.7 fL (80.0-100.0); Monocytes # (auto) 0.9 10 ^3/uL (0-1.3); Monocytes % (auto) 9.3 % (0.0-12.0); Neutrophils # (auto) 4.5 10 ^3/uL (1.6-8.6); Neutrophils % (auto) 47.3 % (37.0-80.0); Nucleated Red Blood Cells % 0.1 %; Red Blood Cells 5.26 10^6/uL (4.0-5.20); Red Cell Distribution Width 14.2 % (11.8-14.3); White Blood Cell 9.6 10^3/uL (4.4-10.8)
[2023-11-24 20:07] LABS: Anion Gap 9 (5-15); Carbon Dioxide 25 mmol/L (20-30); Chloride 106 mmol/L (98-107); Potassium 4.5 mmol/L (3.5-5.1); Sodium 140 mmol/L (136-145)
[2023-11-24 20:08] LABS: Calcium 9.5 mg/dL (8.5-10.1)
[2023-11-24 20:13] LABS: BUN/Creatinine Ratio 23.9 (10.0-20.0); Blood Urea Nitrogen 16 mg/dL (9-23); Glucose 96 mg/dL (74-106)
[2023-11-24] MEDS ORDERED: ACE3T PO (20:59)
[2023-11-24] MEDS: HYDROcodone-ACET 5/325MG TAB PO ONE (21:22)
[2023-11-24] MEDS: ONDANSETRON ODT 4 MG TAB PO ONE (21:23)
[2023-11-24 21:40] VITALS: BP 171/67; PULSE 71; RESP 18; TEMP 98.9; O2SAT 95
== END 2023-11-24 21:46 | disposition home or self-care (01) ==
LOC: ER 15:28 → EDBD 15:28 → ER 21:46
DX: S16.1XXA Strain of muscle, fascia and tendon at neck level, initial encounter (principal); S00.83XA Contusion of other part of head, initial encounter; I10 Essential (primary) hypertension; F41.9 Anxiety disorder, unspecified; F32.9 Major depressive disorder, single episode, unspecified; M19.90 Unspecified osteoarthritis, unspecified site; J44.9 Chronic obstructive pulmonary disease, unspecified; Z98.890 Other specified postprocedural states; Z88.8 Allergy status to other drugs, medicaments and biological substances; Z79.899 Other long term (current) drug therapy; W01.198A Fall on same level from slipping, tripping and stumbling with subsequent striking against other object, initial encounter; Y93.01 Activity, walking, marching and hiking; Y92.89 Other specified places as the place of occurrence of the external cause; Y99.8 Other external cause status
CPT/HCPCS: 36415; 70450; 70486; 71046; 72125; 80048; 83880; 84484; 85025; 99284; Q0162